=== PATIENT | female | born 2000 | race Caucasian/White ===

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

== ENCOUNTER 2024-10-16 11:08 | Outpatient (REF) | payer OTHER, SELFPAY ==
--- NOTE | 2024-10-16 10:45 | PAPFT_PTH ---
PATIENT: LILLIAM DELUCA LOC: [facility] U#:[id number] AGE/SX: 24/F ROOM: RE10/16/[address]: Ana Ahuja NP : 2000 BED: DIS: 10/16/2024 SPEC #: [id number] RECD: 10/16/24 13:00 STATUS: NICOLAS REJignesh #: [id number] DESTIN: 10/16/24 10:[address]: Ana Ahuja NP DEPT: [facility] Cytology RECD BY: Kristi Galvan ENTERED: 10/16/24 13:00 SP TYPE: PAPFT OTHR DR: Irene Reyes Tissues: 1 - CX/ENDOCX FOR PAP SMEARS Procedures: PAP THIN PREP/[facility] Screening Comments: [id number] (CHLAMYDIA/GC)
[2024-10-17 12:41] LABS: Chlamydia Result Negative (Negative); GC Result Negative (Negative)
== END 2024-10-16 11:09 | disposition home or self-care (01) ==
LOC: LBN 11:08
PROVIDERS: PCP Registered Nurse; Visit Provider Nurse Practitioner Women's Health
DX: Z12.4 Encounter for screening for malignant neoplasm of cervix (principal); Z11.3 Encounter for screening for infections with a predominantly sexual mode of transmission; N76.0 Acute vaginitis
CPT/HCPCS: 87491; 87591; 88142